=== PATIENT | male | born 1955 | race Asian ===

== ENCOUNTER 2022-12-24 20:01 | Inpatient (IN) | payer BC ==
[2022-12-24 20:08] VITALS: BMI 25.0
[2022-12-24] MEDS ORDERED: SODIUM CHLORIDE 2,041 ML IV ONE (20:23)
[2022-12-24 21:09] LABS: VENOUS BASE EXCESS -4.4 mmol/L (-2-2); VENOUS O2 SATURATION 63.5 % (70-80); VENOUS PCO2 37.6 mmHg (38-52); VENOUS PH 7.354 (7.310-7.410)
[2022-12-24 21:20] LABS: BASO % 0.6 % (0-2.0); HEMATOCRIT 46.6 % (35.4-49); HEMOGLOBIN 15.9 GM/dL (11.7-16.9); MCH 30.3 pg (25.7-33.7); MCHC 34.2 g/dl (32.0-35.9); MEAN CELL VOLUME 88.4 fl (80-96); MEAN PLT VOLUME 9.2 fl (7.5-11.1); NEUT % 82.4 % (42.8-82.8); PLATELET COUNT 185 10^3/uL (134-434); RBC 5.27 M/mm3 (4.00-5.60); RDW 13.2 % (11.9-15.9); WHITE BLOOD COUNT 11.9 K/mm3 (4.0-10.0)
[2022-12-24 21:27] LABS: INR 1.2 (0.83-1.09); PROTHROMBIN TIME (PATIENT) 13.9 SEC (9.7-13.0)
[2022-12-24 21:29] LABS: ACTIVATED PTT 28.1 SECONDS (25.2-36.5)
[2022-12-24] MEDS ORDERED: LORazepam 2 MG/ML SDV VIAL IVPUSH ONE (21:29)
[2022-12-24 21:44] LABS: LACTIC ACID 3.1 mmol/L (0.4-2.0)
[2022-12-24 21:48] LABS: CHLORIDE 100 mmol/L (98-107); SODIUM 135 mmol/L (136-145)
[2022-12-24 21:49] LABS: CALCIUM 8.5 mg/dL (8.5-10.1)
[2022-12-24 21:50] LABS: ALBUMIN 3.8 g/dl (3.4-5.0); ANION GAP 10 MMOL/L (8-16); BLOOD UREA NITROGEN 24.3 mg/dL (7-18); CO2 25 mmol/L (21-32); GLUCOSE,RANDOM 187 mg/dL (74-106)
[2022-12-24 21:53] LABS: CREATININE 1.8 mg/dL (0.55-1.3); SGOT/AST 19 U/L (15-37); SGPT/ALT 31 U/L (13-61)
[2022-12-24 21:55] LABS: BILIRUBIN,TOTAL 0.7 mg/dL (0.2-1)
[2022-12-24 21:56] LABS: ALK PHOS 66 U/L (45-117)
[2022-12-24] MEDS ORDERED: levETIRAcetam 500 MG/5 ML INJECTION VIAL IVPB ONE ×2 (22:38→22:42)
[2022-12-25 02:15] LABS: CALCIUM 7.4 mg/dL (8.5-10.1)
[2022-12-25 02:16] LABS: BLOOD UREA NITROGEN 23.8 mg/dL (7-18); MAGNESIUM 2.3 mg/dL (1.8-2.4)
[2022-12-25 02:19] LABS: CREATININE 1.5 mg/dL (0.55-1.3)
[2022-12-25 02:23] LABS: URINE APPEARANCE CLEAR; URINE BILIRUBIN NEGATIVE (NEGATIVE); URINE COLOR YELLOW; URINE GLUCOSE (UA) 3+ (NEGATIVE); URINE KETONE NEGATIVE (NEGATIVE); URINE LEUK ESTERASE NEGATIVE (NEGATIVE); URINE NITRITE NEGATIVE (NEGATIVE); URINE PROTEIN TRACE (NEGATIVE); URINE UROBILINOGEN 0.2 mg/dL (0.2-1.0)
[2022-12-25 02:38] LABS: OPIATES, URI NEGATIVE (NEGATIVE)
[2022-12-25 02:39] LABS: COCAINE, UR NEGATIVE (NEGATIVE); METHADONE, UR NEGATIVE (NEGATIVE); PHENCYCLIDINE,URINE NEGATIVE (NEGATIVE); URINE AMPHETAMINES NEGATIVE (NEGATIVE); URINE BENZODIAZEPINES NEGATIVE (NEGATIVE)
[2022-12-25 02:51] LABS: URINE BARBITURATES NEGATIVE (NEGATIVE)
[2022-12-25] MEDS ORDERED: LORazepam 2 MG/ML SDV VIAL IVPUSH PRN (04:26)
[2022-12-25] MEDS ORDERED: HEPARIN NA (PORCINE) 5,000 UNITS/ML 1ML VIAL SQ SCH (06:00)
[2022-12-25 08:38] LABS: BASO % 0.2 % (0-2.0); EOS % 2.6 % (0-4.5); HEMATOCRIT 42.8 % (35.4-49); HEMOGLOBIN 14.6 GM/dL (11.7-16.9); LYMPH % 14.5 % (8-40); MCH 30.3 pg (25.7-33.7); MCHC 34.1 g/dl (32.0-35.9); MEAN CELL VOLUME 88.7 fl (80-96); MEAN PLT VOLUME 8.6 fl (7.5-11.1); MONO % 14.3 % (3.8-10.2); NEUT % 68.4 % (42.8-82.8); PLATELET COUNT 158 10^3/uL (134-434); RBC 4.83 M/mm3 (4.00-5.60); RDW 13.2 % (11.9-15.9); WHITE BLOOD COUNT 8.5 K/mm3 (4.0-10.0)
[2022-12-25 09:02] LABS: CALCIUM 7.7 mg/dL (8.5-10.1)
[2022-12-25 09:03] LABS: ALBUMIN 3.1 g/dl (3.4-5.0); MAGNESIUM 2.5 mg/dL (1.8-2.4)
[2022-12-25 09:06] LABS: PHOSPHOROUS 3.1 mg/dL (2.5-4.9)
[2022-12-25 09:07] LABS: BILIRUBIN,TOTAL 0.5 mg/dL (0.2-1); TOT PROT 5.8 g/dl (6.4-8.2)
[2022-12-25 09:09] LABS: BLOOD UREA NITROGEN 24.1 mg/dL (7-18); CREATININE 1.4 mg/dL (0.55-1.3)
[2022-12-25] MEDS ORDERED: levETIRAcetam 500 MG/5 ML INJECTION VIAL IVPB SCH (10:00)
[2022-12-25] MEDS ORDERED: levETIRAcetam 500 MG TABLET (FP) PO SCH (10:00)
[2022-12-25] MEDS: levETIRAcetam 500 MG/5 ML INJECTION VIAL IVPB SCH ×2 (10:17→21:31)
[2022-12-25] MEDS: INSULIN SLIDING SCALE (NOVOLOG) 1 VIAL SQ SCH ×2 (11:26→21:55)
[2022-12-25] MEDS ORDERED: POTASSIUM CHLORIDE ORAL LIQUID 20 MEQ/15 ML PO ONE (13:48)
[2022-12-25] MEDS ORDERED: ACETAMINOPHEN 325 MG TABLET (FP) PO PRN (19:15)
[2022-12-25] MEDS: HEPARIN NA (PORCINE) 5,000 UNITS/ML 1ML VIAL SQ SCH (21:30)
[2022-12-25] MEDS ORDERED: VANCOMYCIN 1 GM/200 ML PREMIX BAG (RESTRICTED TO ID ONLY) IVPB SCH (21:30)
[2022-12-25] MEDS: risperiDONE 1 MG TABLET PO SCH (21:31)
[2022-12-25] MEDS: PARoxetine HCL 10 MG TABLET PO SCH (21:31)
[2022-12-25] MEDS: MIRTAZAPINE 15 MG TABLET (FP) PO SCH (21:31)
[2022-12-26] MEDS: INSULIN SLIDING SCALE (NOVOLOG) 1 VIAL SQ SCH ×4 (06:34→22:26)
[2022-12-26 08:17] LABS: CALCIUM 8.3 mg/dL (8.5-10.1)
[2022-12-26 08:21] LABS: CREATININE 1.3 mg/dL (0.55-1.3)
[2022-12-26 08:34] LABS: BLOOD UREA NITROGEN 22.6 mg/dL (7-18)
[2022-12-26] MEDS: HEPARIN NA (PORCINE) 5,000 UNITS/ML 1ML VIAL SQ SCH ×2 (09:33→21:07)
[2022-12-26] MEDS: risperiDONE 0.5 MG TABLET PO SCH (09:33)
[2022-12-26] MEDS: levETIRAcetam 500 MG/5 ML INJECTION VIAL IVPB SCH ×2 (09:33→21:08)
[2022-12-26] MEDS ORDERED: PATIENT'S OWN MEDICATION (NON-FORMULARY) (Losartan/Hydrochlorothiazide [Losartan-Hctz 100- PO SCH (10:00)
[2022-12-26 14:20] LABS: MAGNESIUM 2.3 mg/dL (1.8-2.4)
[2022-12-26] MEDS: LOSARTAN 50MG/HCTZ 12.5MG 1 TAB PO SCH (15:40)
[2022-12-26] MEDS: PARoxetine HCL 10 MG TABLET PO SCH (21:08)
[2022-12-26] MEDS: risperiDONE 1 MG TABLET PO SCH (21:08)
[2022-12-26] MEDS: MIRTAZAPINE 15 MG TABLET (FP) PO SCH (21:08)
[2022-12-26] MEDS: VANCOMYCIN/WATER FOR INJ (PEG) 1,000 MG/200 ML BAG IVPB SCH (22:35)
[2022-12-27 08:22] LABS: BASO % 0.4 % (0-2.0); EOS % 5.8 % (0-4.5); HEMOGLOBIN 13.9 GM/dL (11.7-16.9); LYMPH % 22.8 % (8-40); MCH 29.7 pg (25.7-33.7); MEAN CELL VOLUME 87.4 fl (80-96); MEAN PLT VOLUME 9.5 fl (7.5-11.1); MONO % 13.9 % (3.8-10.2); NEUT % 57.1 % (42.8-82.8); PLATELET COUNT 169 10^3/uL (134-434); RBC 4.69 M/mm3 (4.00-5.60); RDW 13.1 % (11.9-15.9); WHITE BLOOD COUNT 6.5 K/mm3 (4.0-10.0)
[2022-12-27 08:38] LABS: CALCIUM 8.4 mg/dL (8.5-10.1)
[2022-12-27 08:39] LABS: BLOOD UREA NITROGEN 21.4 mg/dL (7-18)
[2022-12-27 08:42] LABS: CREATININE 1.1 mg/dL (0.55-1.3)
[2022-12-27 08:43] LABS: BILIRUBIN,TOTAL 0.6 mg/dL (0.2-1); TOT PROT 5.8 g/dl (6.4-8.2)
[2022-12-27] MEDS: VANCOMYCIN 1 GM/200 ML PREMIX BAG (RESTRICTED TO ID ONLY) IVPB SCH (09:11)
[2022-12-27] MEDS: INSULIN SLIDING SCALE (NOVOLOG) 1 VIAL SQ SCH ×5 (09:12→22:12)
[2022-12-27] MEDS: levETIRAcetam 500 MG/5 ML INJECTION VIAL IVPB SCH ×2 (09:54→21:23)
[2022-12-27] MEDS: HEPARIN NA (PORCINE) 5,000 UNITS/ML 1ML VIAL SQ SCH ×2 (09:55→21:24)
[2022-12-27] MEDS: risperiDONE 0.5 MG TABLET PO SCH (09:55)
[2022-12-27] MEDS: LOSARTAN 50MG/HCTZ 12.5MG 1 TAB PO SCH (09:55)
[2022-12-27] MEDS: VANCOMYCIN/WATER FOR INJ (PEG) 1,000 MG/200 ML BAG IVPB SCH ×2 (10:55→22:09)
[2022-12-27] MEDS: PARoxetine HCL 10 MG TABLET PO SCH (21:25)
[2022-12-27] MEDS: MIRTAZAPINE 15 MG TABLET (FP) PO SCH (21:26)
[2022-12-27] MEDS: risperiDONE 1 MG TABLET PO SCH (21:26)
[2022-12-28] MEDS: INSULIN SLIDING SCALE (NOVOLOG) 1 VIAL SQ SCH ×4 (07:42→22:38)
[2022-12-28] MEDS: levETIRAcetam 500 MG/5 ML INJECTION VIAL IVPB SCH ×2 (10:35→22:38)
[2022-12-28] MEDS: LOSARTAN 50MG/HCTZ 12.5MG 1 TAB PO SCH (10:35)
[2022-12-28] MEDS: risperiDONE 0.5 MG TABLET PO SCH (10:35)
[2022-12-28] MEDS: HEPARIN NA (PORCINE) 5,000 UNITS/ML 1ML VIAL SQ SCH ×2 (10:35→22:38)
[2022-12-28] MEDS: VANCOMYCIN/WATER FOR INJ (PEG) 1,000 MG/200 ML BAG IVPB SCH ×2 (11:35→22:39)
[2022-12-28] MEDS ORDERED: INSULIN (NOVOLOG) ASPART 100 UNITS/ML 10ML VIAL ONE (21:47)
[2022-12-28] MEDS: risperiDONE 1 MG TABLET PO SCH (22:30)
[2022-12-28] MEDS: PARoxetine HCL 10 MG TABLET PO SCH (22:31)
[2022-12-28] MEDS: MIRTAZAPINE 15 MG TABLET (FP) PO SCH (22:32)
[2022-12-29 03:33] VITALS: RESP 20
[2022-12-29] MEDS: INSULIN SLIDING SCALE (NOVOLOG) 1 VIAL SQ SCH (06:39)
[2022-12-29] MEDS ORDERED: ACETAMINOPHEN 325 MG TABLET (FP) PO PRN (07:15)
[2022-12-29 07:52] LABS: CALCIUM 9.1 mg/dL (8.5-10.1)
[2022-12-29 07:53] LABS: BLOOD UREA NITROGEN 23.6 mg/dL (7-18)
[2022-12-29 07:56] LABS: CREATININE 1.2 mg/dL (0.55-1.3)
[2022-12-29 08:26] LABS: BASO % 0.6 % (0-2.0); EOS % 3.9 % (0-4.5); HEMATOCRIT 43.2 % (35.4-49); HEMOGLOBIN 14.9 GM/dL (11.7-16.9); LYMPH % 26.3 % (8-40); MCH 30.1 pg (25.7-33.7); MCHC 34.5 g/dl (32.0-35.9); MEAN CELL VOLUME 87.4 fl (80-96); MEAN PLT VOLUME 8.9 fl (7.5-11.1); MONO % 10.5 % (3.8-10.2); NEUT % 58.7 % (42.8-82.8); PLATELET COUNT 190 10^3/uL (134-434); RBC 4.95 M/mm3 (4.00-5.60); RDW 13.1 % (11.9-15.9); WHITE BLOOD COUNT 7.1 K/mm3 (4.0-10.0)
[2022-12-29] MEDS ORDERED: HEPARIN NA (PORCINE) 5,000 UNITS/ML 1ML VIAL SQ SCH (10:00)
[2022-12-29] MEDS ORDERED: VANCOMYCIN/WATER FOR INJ (PEG) 1,000 MG/200 ML BAG IVPB SCH (10:00)
[2022-12-29] MEDS ORDERED: LOSARTAN 50MG/HCTZ 12.5MG 1 TAB PO SCH (10:00)
[2022-12-29] MEDS ORDERED: risperiDONE 0.5 MG TABLET PO SCH (10:00)
[2022-12-29] MEDS ORDERED: levETIRAcetam 500 MG/5 ML INJECTION VIAL IVPB SCH (10:00)
[2022-12-29] MEDS ORDERED: INSULIN SLIDING SCALE (NOVOLOG) 1 VIAL SQ SCH (11:00)
[2022-12-29] MEDS ORDERED: INSULIN (NOVOLOG) ASPART 100 UNITS/ML 10ML VIAL ONE (11:02)
[2022-12-29 13:26] VITALS: BP 113/63; PULSE 98; TEMP 98.3
[2022-12-29] MEDS ORDERED: levETIRAcetam 500 MG TABLET (FP) PO SCH (22:00)
[2022-12-29] MEDS ORDERED: MIRTAZAPINE 15 MG TABLET (FP) PO SCH (22:00)
[2022-12-29] MEDS ORDERED: PARoxetine HCL 10 MG TABLET PO SCH (22:00)
[2022-12-29] MEDS ORDERED: risperiDONE 1 MG TABLET PO SCH (22:00)
== END 2022-12-29 14:54 | disposition home or self-care (01) | DRG 101 ==
LOC: JER 20:01 → JERBED 12-25 02:32 → J4W 12-25 08:05 → J8W 12-28 17:05
PROVIDERS: ADMIT Internal Medicine; ATTEND Internal Medicine
DX: R56.9 Unspecified convulsions (principal); R78.81 Bacteremia; I12.9 Hypertensive chronic kidney disease with stage 1 through stage 4 chronic kidney disease, or unspecified chronic kidney disease; N18.9 Chronic kidney disease, unspecified; E78.5 Hyperlipidemia, unspecified; F41.8 Other specified anxiety disorders; F39 Unspecified mood [affective] disorder; E11.9 Type 2 diabetes mellitus without complications
CPT/HCPCS: 0241U-QW; 36415; 70450-TC; 71045-TC-FY; 80048; 80053; 80307; 81003; 82550; 82553; 82803; 82962; 83605; 83735; 84100; 84443; 84484; 85025; 85610; 85730; 86850; 86900; 86901; 87040; 87086; 87186; 93005; 93010; 93306-TC; 99285-25; G0480; J1644